=== PATIENT | male | born 1955 | race Caucasian/White ===

== ENCOUNTER 2020-09-24 20:00 | Emergency (ER) | payer OTHER ==
--- NOTE | 2020-09-24 20:41 | RAD ---
EXAM: Chest,1 View CLINICAL INDICATION: Cough COMPARISON: There is no previous study for comparison. FINDINGS: A single view of the chest was obtained. The heart size is normal. The pulmonary vascularity is unremarkable. The lungs are clear. There is no consolidation, infiltrate, pleural effusion, or pneumothorax. IMPRESSION: No evidence of active pulmonary disease. Electronically signed by: Joe Thayer MD 09/24/2020 8:40 PM [facility]
[2020-09-24] MEDS ORDERED: AZITHROMYCIN 250 MG TAB PO ONE (20:57)
[2020-09-24] MEDS ORDERED: predniSONE 20 MG TAB PO ONE (20:57)
--- NOTE | 2020-09-24 21:00 | ED.PDOC ---
History of Present Illness - General Chief Complaint: Respiratory Problem Stated Complaint: cough, congestion Time Seen by Provider: 09/24/20 20:14 Source: patient Exam Limitations: no limitations - History of Present Illness Initial Comments: The patient is a 65-year-old male presenting to the emergency room secondary to 3 days of symptoms of intermittent fevers chills, mild nausea and a very mild cough. He has had a mild sore throat and a mild runny nose. He is concerned he may have coronavirus as he does have 2 family members at home that are very high risk if they contract it. No shortness of breath. No chest pain. No syncope. Timing/Duration: other - 3 days intermittent Severity: moderate Improving Factors: nothing Worsening Factors: nothing Associated Symptoms: cough, fever/chills, headaches - Mild, loss of appetite, malaise Home Medications: Ambulatory Orders Azithromycin 500 mg PO DAILY #5 tab 09/24/20 predniSONE [Prednisone] 20 mg PO DAILY #7 tab 09/24/20 Review of Systems - Review of Systems Constitutional: States: malaise EENTM: States: nose congestion, throat pain Respiratory: States: cough - Mild Cardiology: States: no symptoms reported Gastrointestinal/Abdominal: States: nausea - Mild Genitourinary: States: no symptoms reported Musculoskeletal: States: see HPI - Myalgias Skin: States: no symptoms reported Neurological: States: headache - Mild Endocrine: States: no symptoms reported All other Systems: No Change from Baseline Past Medical History (General) - Patient Medical History Hx Asthma: No Hx Hypertension: Yes Hx Diabetes: No Hx Renal Disease: Yes - "irritable bladder" Surgical History: no surgical history - Vaccination History Hx Tetanus, Diphtheria Vaccination: Yes Hx Influenza Vaccination: Yes Hx Pneumococcal Vaccination: Yes - Social History Hx Tobacco Use: No Hx Alcohol Use: No Family Medical History - Family History Brother Hx Family;Other: lung problems Physical Exam - Physical Exam General Appearance: Alert, Comfortable, No apparent distress Eye Exam: bilateral normal Ears, Nose, Throat: hearing grossly normal, nasal congestion, pharyngeal erythema Neck: non-tender, full range of motion, supple Respiratory: lungs clear, normal breath sounds, no respiratory distress, no accessory muscle use Cardiovascular/Chest: normal peripheral pulses, regular rate, rhythm, no edema Peripheral Pulses: radial,right: 2+, radial,left: 2+ Gastrointestinal/Abdominal: non tender - Morbidly obese, soft Rectal Exam: deferred Back Exam: no CVA tenderness, no vertebral tenderness Extremity: non-tender, normal inspection, no pedal edema, normal capillary refill Neurologic: associate scientist II-XII nml as tested, alert, normal mood/affect, oriented x 3 Skin Exam: normal color Comments: Vital Signs - 24 hr 09/24/20 20:23 Temperature 97.7 F Pulse Rate [ 60 left] Respiratory 20 Rate Blood Pressure 145/78 [left] O2 Sat by Pulse 95 Oximetry Progress - Progress Progress: 09/24/20 21:00 The patient is a 65-year-old male presents emergency room with signs and symptoms of coronavirus. He did test positive for it here today. He does need to isolate. He is going to be placed on low-dose steroids for the next week as well as oral azithromycin. He needs to keep himself hydrated. He needs to remain active. He needs to return for repeat evaluation if his condition is significantly worsening. ER warnings are given. [email or web address] [email or web address] [id number] Departure - Departure Clinical Impression: COVID-19 Disposition: Discharge to Home or Self Care Condition: Fair Departure Forms: ED Discharge - Pt. Copy, Patient Portal Self Enrollment Instructions: Coronavirus Disease 2019 (COVID-19) ED Diet: regular diet Activity: increase activity as tolerated Referrals: LADY QUINN MD [Primary Care Provider] - 1-2 Weeks Prescriptions: Azithromycin 500 mg PO DAILY #5 tab predniSONE [Prednisone] 20 mg PO DAILY #7 tab Home Medications: Ambulatory Orders Azithromycin 500 mg PO DAILY #5 tab 09/24/20 predniSONE [Prednisone] 20 mg PO DAILY #7 tab 09/24/20 Additional Instructions: The patient is a 65-year-old male presents emergency room with signs and symp toms of coronavirus. He did test positive for it here today. He does need to isolate. He is going to be placed on low-dose steroids for the next week as well as oral azithromycin. He needs to keep himself hydrated. He needs to remain active. He needs to return for repeat evaluation if his condition is significantly worsening. ER warnings are given.
[2020-09-24 21:16] VITALS: BP 141/68; TEMP 97.8; O2SAT 94
== END 2020-09-24 21:15 | disposition home or self-care (01) ==
LOC: ER 20:00
DX: U07.1 COVID-19 (principal); I10 Essential (primary) hypertension
CPT/HCPCS: 71045; 87502; 87635; J7512; Q0144

== ENCOUNTER → 2020-10-14 | Outpatient (CLI) | payer OTHER | LOC: GMAE 10:51 | PROVIDERS: ATTEND Family Medicine | DX: Z00.01 Encounter for general adult medical examination with abnormal findings (principal); R94.6 Abnormal results of thyroid function studies; D51.8 Other vitamin B12 deficiency anemias; E29.1 Testicular hypofunction; E55.9 Vitamin D deficiency, unspecified ==